=== PATIENT | male | born 1970 | race Two or more races ===

== ENCOUNTER 2018-07-17 06:02 | Day surgery (SDC) | payer OTHER ==
[~2018-07-17 06:02] MED LIST: AVAPRO300 MG; GLIPIZIDE10 MG; LANTUS SOL100 UNIT/1; LEVOXYL50 MCG; ONGLYZA5 MG; PAROXETINE HCL20 MG; PNEU16DI2; RISPERDAL1 MG
== END 2018-07-17 13:50 | disposition home or self-care (01) ==
LOC: CIR.AMB 06:02
DX: H65.493 Other chronic nonsuppurative otitis media, bilateral (principal)

== ENCOUNTER 2019-04-02 05:45 | Day surgery (SDC) | payer OTHER | END 2019-04-02 11:05 | disposition home or self-care (01) | LOC: CIR.AMB 05:45 | DX: H66.91 Otitis media, unspecified, right ear (principal) ==